=== PATIENT | male | born 1955 | race Caucasian/White ===

== ENCOUNTER → 2022-07-29 | Day surgery (SDC) | payer MEDICAID ==
[~2022-07-29] VITALS: Ht 165.1 cm; Wt 74.8 kg
[~2022-07-29] MED LIST: ATOR-2 PO; BALANCED SALT IRRIG SOLN 15ML ONE; BALANCED SALT IRRIG SOLN COMB1 500ML OP NR; CIPROFLOXACIN 0.3% OPHTH SOLN 2.5ML ONE; CYCLOPENTOLATE HCL 1% OPHTH DROPS 2ML RIGHTEYE NR; DEXAMETHASONE 4MG/ML 1ML VIAL ONE; EMPA25TA PO; HYALURONATE SODIUM 10 MG/ML 0.55ML SYRINGE IO ONE; INSU100I24 SQ; INSU100I43 SUBCUT; LIDOCAINE HCL/PF 2% 20 MG/ML 10ML VIAL ONE; METF-416 PO; MIDAZOLAM HCL 2 MG/2 ML VIAL ONE; ONDANSETRON HCL 4MG/2ML INJ ONE; PHENYLEPHRINE HCL 10% OPHTH DROPS 5ML ONE; PHENYLEPHRINE HCL 10% OPHTH DROPS 5ML RIGHTEYE NR; PREDNISOLONE ACETATE 1% OPHTH DROPS 5ML ONE; PROPOFOL 200MG/20ML VIAL IV ONE; SODIUM CHLORIDE 0.9% 1,000 ML IV SCH; TETRACAINE 0.5% OPHTH DROPS 4ML ONE; TROPICAMIDE 1% OPHTH DROPS 15ML RIGHTEYE NR
== END | disposition home or self-care (01) ==
LOC: OR 05:32
PROVIDERS: ATTEND Ophthalmology
DX: E11.36 Type 2 diabetes mellitus with diabetic cataract (principal); H25.89 Other age-related cataract; Z79.84 Long term (current) use of oral hypoglycemic drugs; Z79.899 Other long term (current) drug therapy; Z98.890 Other specified postprocedural states; Z20.822 Contact with and (suspected) exposure to COVID-19
CPT/HCPCS: 66984; 82962; 87426; C9803; J1100; J2250; J2405; J2704; J3490; V2632